=== PATIENT | female | born 1930 | race Caucasian/White ===

== ENCOUNTER 2017-07-27 16:31 | Emergency (ER) | payer MEDICARE ==
[2017-07-27] MEDS ORDERED: cloNIDine 0.1 MG TAB ONE (17:09)
[2017-07-27 17:26] LABS: #Eosinphils 0.1 thou/uL (0.0-0.7); #Lymphocytes 2.6 thou/uL (1.20-3.40); #Monocytes 0.6 thou/uL (0.11-0.59); #Neutrophils 5.5 thou/uL (1.40-6.50); %Basophils 0.3 % (0.0-1.0); %Eosinophils 0.8 % (0.0-10.0); %Lymphocytes 29.9 % (21.0-51.0); %Monocytes 6.3 % (0.0-10.0); %Neutrophils 62.7 % (42.0-75.0); Hemoglobin 13.7 g/dL (12.0-16.0); Mean Corpuscular HGB CONC 33.6 g/dL (32.0-36.0); Mean Corpuscular Volume 92.4 fl (81.0-99.0); Mean Platelet Volume 9.1 fL (7.4-10.4); Platelet Count 191 thou/uL (130-400); Red Blood Cell (RBC) Count 4.41 mill/uL (4.20-5.40); White Blood Cell (WBC) Count 8.7 thou/uL (4.8-10.8)
[2017-07-27 17:47] LABS: PTT 26.9 SEC (22.9-36.1)
[2017-07-27 17:48] LABS: ALT (SGPT) 15 U/L (8-55); AST (SGOT) 19 U/L (5-34); Albumin 3.7 g/dL (3.4-4.8); Alkaline Phosphatase 68 U/L (40-150); Anion Gap 13 mmol/L (10-20); BUN (Urea Nitrogen) 19 mg/dL (9.8-20.1); Bilirubin, Total 0.3 mg/dL (0.2-1.2); CK (CPK) 67 U/L (29-168); Calc. Creatinine Clearance 0 mL/min (70-130); Calcium 9.4 mg/dL (7.8-10.44); Carbon Dioxide 23 mmol/L (23-31); Chloride 108 mmol/L (98-107); Estimated GFR-MDRD 46; Globulin 3.5 g/dL (2.4-3.5); Glucose 103 mg/dL (83-110); Protein, Total 7.2 g/dL (6.0-8.3); Sodium 140 mmol/L (136-145)
[2017-07-27 17:50] LABS: CKMB 0.8 ng/mL (0-6.6); Troponin I Less than 0.010 ng/mL (< 0.028)
--- NOTE | 2017-07-27 17:51 | RAD ---
FOUR VIEWS LEFT KNEE: 07/27/17 HISTORY: Stumbled on left knee outside. Injury after tripping and falling. COMPARISON: None available. FINDINGS: There is tricompartment osteophytosis. No fracture or dislocation is seen. there is a small joint eff usion at the suprapatellar location. Vascular calcification posterior to the knee. IMPRESSION: 1. Osteoarthritis without an acute fracture visualized. 2. Small joint effusion. POS: [facility]
--- NOTE | 2017-07-27 18:05 | RAD ---
FOUR VIEWS RIGHT KNEE: 07/27/17 HISTORY: Right knee pain post fall. FINDINGS: There is tricompartment osteophytosis. Mild narrowing of the lateral joint compartment is present. No fracture or dislocation is identified. No joint effusion is appreciated. Vascular calcifications are seen posterior to the knee. IMPRESSION: Osteoarthritis without evidence of an acute fracture. POS: [facility]
--- NOTE | 2017-07-27 18:06 | RAD ---
AP PELVIS RADIOGRAPH 07/27/17 HISTORY: Bilateral knee pain after a fall. Left hip pain after fall. FINDINGS: There is mild bilateral hip osteoarthritis. No obvious fracture is seen. Mild degenerative changes ar e seen in the lower lumbar spine with degenerative changes of the pubic symphysis. There is mild bila teral sacroiliac joint osteoarthritis. Femoral necks are partially obscured due to external rotation. Vascular calcifications are seen. IMPRESSION: Degenerative changes, but no obvious fracture is appreciated. POS: [facility]
--- NOTE | 2017-07-27 18:13 | RAD ---
TWO VIEWS LEFT HIP: 07/27/17 HISTORY: Left hip pain after trauma. FINDINGS: There is mild left hip osteoarthritis with osteoarthritis involving each sacroiliac joint. Degenerat patti changes are seen in the pubic symphysis. No obvious fracture is seen as visualized. There is luce ncy overlying the region of the left greater trochanter, but this lucency is not seen on AP view of t he pelvis which was also obtained on this date and lucency is in a different location on the lateral view. This probably represents overlying structures as opposed to a nondisplaced fracture. IMPRESSION: Degenerative changes as described above, but no obvious fracture is seen; however, if the patient con tinues to have pain or there is clinical concern for radiographically occult fracture, CT scan versus MRI of left hip is recommended for further evaluation. POS: [facility]
[2017-07-27] MEDS ORDERED: HYDROcodone/Acetaminophen 5/325 mg Tablet ONE (19:01)
[2017-07-27] MEDS ORDERED: traMADol HCl 50 MG TAB ONE (19:09)
== END 2017-07-27 20:05 | disposition home or self-care (01) ==
LOC: ERS 16:31
DX: M17.0 Bilateral primary osteoarthritis of knee (principal)
CPT/HCPCS: 36415; 72170; 80053; 82553; 84484; 85025; 85610; 85730